=== PATIENT | female | born 1990 ===

== ENCOUNTER 2022-08-19 06:00 | Inpatient (IN) | payer MEDICAID ==
[2022-08-19] MEDS ORDERED: Misoprostol 25 MCG (1/4 of 100 MCG) Tab PO ONE (12:40)
[2022-08-19] MEDS ORDERED: Labetalol 100 MG Tab PO ONE (17:30)
[2022-08-19] MEDS ORDERED: Oxytocin/Lactated Ringers 10 UNIT/1,000 ML BAG IV ONE (20:40)
[2022-08-19] MEDS ORDERED: Lactated Ringers 1,000 ML IV ONE (20:40)
[2022-08-19] MEDS ORDERED: Sertraline 50 MG Tab PO ONE (21:00)
[2022-08-19] MEDS ORDERED: Gemfibrozil 600 MG Tab PO ONE (21:00)
[2022-08-19] MEDS ORDERED: Ondansetron 4 MG/2 ML SDV IV ONE (23:55)
[2022-08-20] MEDS ORDERED: Bupivacaine/fentaNYL/NS 100 ML Bag EPIDUR ONE (04:05)
[2022-08-20] MEDS ORDERED: fentaNYL 100 MCG/2 ML SDV IV ONE (04:05)
[2022-08-20] MEDS ORDERED: Sodium Chloride 0.9% 1,000 ML IV ONE (04:05)
[2022-08-20] MEDS ORDERED: Citric Acid/Sodium Citrate Solution 30 ML Cup PO ONE (08:25)
[2022-08-20] MEDS ORDERED: Metoclopramide 10 MG/2 ML SDV IV ONE (08:25)
[2022-08-20] MEDS ORDERED: Azithromycin 500 MG in Sodium Chloride 0.9% 250 ML IV ONE (08:25)
[2022-08-20] MEDS ORDERED: Dextrose 5%-Lactated Ringers 1,000 ML IV ONE (16:10)
[2022-08-20] MEDS ORDERED: Ketorolac 30 MG/ML SDV IVPUSH ONE (16:30)
[2022-08-21] MEDS ORDERED: Dextrose 5%-Lactated Ringers 1,000 ML IV ONE (00:10)
[2022-08-21] MEDS ORDERED: Labetalol 100 MG Tab PO ONE (02:00)
[2022-08-21] MEDS ORDERED: Gemfibrozil 600 MG Tab PO ONE (02:00)
[2022-08-21] MEDS ORDERED: Ketorolac 30 MG/ML SDV IVPUSH ONE (04:30)
[2022-08-21] MEDS ORDERED: Omeprazole 20 MG Cap.CR PO ONE (06:00)
[2022-08-21] MEDS ORDERED: Acetaminophen/oxyCODONE 325-5 MG Tab PO ONE (14:48)
[2022-08-21] MEDS ORDERED: Ibuprofen 600 MG Tab PO ONE (15:50)
[2022-08-21] MEDS ORDERED: Sertraline 50 MG Tab PO ONE (21:00)
[2022-09-22 17:38] LABS: ESTIMATED GFR 86 mL/min (>60)
== END 2022-08-22 11:15 | disposition home or self-care (01) | DRG 787 ==
LOC: JD.OBCHECK 06:00 → JD.ZCENSUS 06:56 → JD.OBCHECK 08-20 06:00 → OBSVTOIN 08-20 09:26 → EDSTATUS 08-20 10:32
PROVIDERS: ATTEND Family Medicine
PROC: 10D00Z1 Extraction of Products of Conception, Low, Open Approach (ICD-10-PCS; principal; 2022-08-20)
PROC: 3E0P7VZ Introduction of Hormone into Female Reproductive, Via Natural or Artificial Opening (ICD-10-PCS; 2022-08-20)
PROC: 0U7C7ZZ Dilation of Cervix, Via Natural or Artificial Opening (ICD-10-PCS; 2022-08-20)
PROC: 3E033VJ Introduction of Other Hormone into Peripheral Vein, Percutaneous Approach (ICD-10-PCS; 2022-08-20)
PROC: 10H07YZ Insertion of Other Device into Products of Conception, Via Natural or Artificial Opening (ICD-10-PCS; 2022-08-20)
DX: O10.92 Unspecified pre-existing hypertension complicating childbirth (principal); O72.1 Other immediate postpartum hemorrhage; O62.2 Other uterine inertia; Z3A.39 39 weeks gestation of pregnancy; Z37.0 Single live birth; O77.0 Labor and delivery complicated by meconium in amniotic fluid; Z91.040 Latex allergy status; Z88.1 Allergy status to other antibiotic agents
CPT/HCPCS: 01968; 36415; 51702; 59025; 80053; 82570; 84156; 85025; 85027; 86592; 86850; 86900; 86901; A9270-GY; C1726; J0456; J1885; J2405; J2590; J2765; J3010; J7030; J7050; J7120; J7121